=== PATIENT | male | born 1985 | race Caucasian/White ===

== ENCOUNTER 2022-12-30 22:29 | Emergency (ER) | payer OTHER, SELFPAY ==
[2022-12-30 22:39] VITALS: BP 139/96; PULSE 66; RESP 16; TEMP 36.9; O2SAT 98; BMI 23.8
--- NOTE | 2022-12-30 22:56 | ED_ITS ---
HPI - Eye Problem General Chief complaint: Eye Problems Stated complaint: EYE PAIN Time Seen by Provider: 12/30/22 22:51 Source: patient Source comment: Patient Mode of arrival: walk-in Limitations: no limitations History of Present Illness HPI Narrative: noticed mild discomfort of the left eye this afternoon. Not able to recall sensation of something getting in the eye or his scratching the eye. Now has more discomfort and some drainage from the eye. No associated headache . No eye pain other than the burning sensation and tearing. No known pink eye exposure Location: Reports left eye Related Data Home Medications Medication Instructions Recorded Confirmed omeprazole 20 mg capsule,delayed 20 mg PO DAILY 12/30/22 12/30/22 release Allergies Allergy/AdvReac Type Severity Reaction Status Date / Time No Known Drug Allergies Allergy Verified 12/30/22 22:43 Review of Systems ROS Status of ROS 10 or more systems reviewed and unremarkable except as noted in history and below [facility] Medical History (Updated 12/30/22 @ 23:15 by Volodymyr Issa MD) Social History Smoking status: Never smoker Exam Constitutional Vital Signs, click to edit/add: Last Vital Signs Temp 98.5 F 12/30/22 22:39 Pulse 66 12/30/22 22:39 Resp 16 12/30/22 22:39 BP 139/96 H 12/30/22 22:39 Pulse Ox 98 12/30/22 22:39 O2 Del Method Room Air 12/30/22 22:39 Common normals: oriented x3, healthy appearing and alert [facility] Common normals: normocephalic Eye Eyelid: eyelids normal Conjunctiva: conjunctiva abnormal (left eye injected) Respiratory Common normals: normal respiratory effort, no use of accessory muscles and clear to auscultation bilaterally Cardio Common normals: regular rate, regular rhythm, S1 normal heart sound and S2 normal heart sound Extremity Common normals: normal to inspection and full ROM Neuro Common normals: oriented x3, CN's II-XII intact bilaterally, moves all extremities and no focal motor deficits Psych Appearance: grossly normal Course Vital Signs Vital signs: Vital Signs Temperature 98.5 F 12/30/22 22:39 Pulse Rate 66 12/30/22 22:39 Respiratory Rate 16 12/30/22 22:39 Blood Pressure 139/96 H 12/30/22 22:39 Pulse Oximetry 98 12/30/22 22:39 Oxygen Delivery Method Room Air 12/30/22 22:39 Temperature 98.5 F 12/30/22 22:39 Pulse Rate 66 12/30/22 22:39 Respiratory Rate 16 12/30/22 22:39 Blood Pressure 139/96 H 12/30/22 22:39 Pulse Oximetry 98 12/30/22 22:39 Oxygen Delivery Method Room Air 12/30/22 22:39 MDM - Eye Problem MDM Narrative Medical decision making narrative: presents with injected left eye. No injury or FB sensation. Started as mild dis comfort and then slowly progressed all day and then started to drain. No palpebral swelling or chemosis. Inspection neg for FB. Discomfort relieved with tetracaine. No obvious uptake of dye when instilled. patient advised of the working diagnosis of conjunctivitis and the need for close follow up Differential Diagnosis Differential diagnosis: Likely corneal abrasion, conjunctivitis, acute iritis and corneal ulcer Discharge Plan Discharge Chief Complaint: Eye Problems Clinical Impression: Bacterial conjunctivitis Patient Disposition: Home, Self-Care Prescriptions / Home Meds: No Action omeprazole 20 mg capsule,delayed release(DR/EC) 20 mg PO DAILY Instructions: Conjunctivitis (ED) Additional Instructions: return tomorrow to have the eye rechecked if still painful, otherwise follow up with your doctor monday Stand Alone Forms: Portal Instructions Referrals: Physician,Non-Staff, MD [Primary Care Provider] - 1 week
[2022-12-30] MEDS: FLUORESCEIN SODIUM 1 MG STRIP OP (23:01)
[2022-12-30] MEDS: TOBRAMYCIN 0.3% OP SOL 100 DROP/5 ML BOTTLE OP (23:29)
== END 2022-12-30 23:34 | disposition home or self-care (01) ==
PROVIDERS: Emergency Provider Internal Medicine
DX: H10.9 Unspecified conjunctivitis (principal)
CPT/HCPCS: 99283